=== PATIENT | male | born 1975 | race Caucasian/White ===

== ENCOUNTER 2017-05-27 15:36 | Inpatient (IN) | payer OTHER ==
[2017-05-27] MEDS ORDERED: IBUPROFEN 600 MG TABLET (FP) PO ONE ×2 (16:04→16:05)
[2017-05-27] MEDS ORDERED: ALBUTEROL SO4 2.5/IPRATROPIUM 0.5 INH SOL 3 ML VIAL.NEB. NEB ONE ×3 (16:04→21:38)
--- NOTE | 2017-05-27 16:09 | PDOC ---
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 had onset of high fevers and chills on Monday and is progressively worsened. has a moist nonproductive cough, has generalized body aches "my fingernails hurt", sore throat pain and runny nose. Used ibuprofen yesterday but feels is worsening 05/27/17 17:11 Timing/Duration: reports: getting worse, week Severity: reports: moderate Modifying Factors: improves with: activity Associated Symptoms: reports: chest pain/soreness, cough, fever/chills, nasal congestion, nasal drainage, sore throat. denies: wheezing Past History - Travel Traveled outside of the country in the last 30 days: No Close contact w/someone who was outside of country & ill: No - Past Medical History Allergies/Adverse Reactions: Allergies Allergy/AdvReac Type Severity Reaction Status Date / Time No Known Allergies Allergy Verified 05/27/17 15:44 Home Medications: Ambulatory Orders NK [No Known Home Medication] 05/27/17 COPD: No Other medical history: DENIES. - Suicide/Smoking/Psychosocial Hx Smoking Status: No Smoking History: Never smoked Number of Cigarettes Smoked Daily: 0 Review of Systems - Review of Systems Able to Perform ROS?: Yes Is the patient limited Nauruan proficient: Yes Constitutional: Yes: Symptoms Reported, See HPI, Chills, Fever, Loss of Appetite , Malaise, Weakness HEENTM: Yes: Symptoms Reported, See HPI, Ear Pain, Nose Congestion, Throat Pain , Difficulty Swallowing. No: Throat Swelling Respiratory: Yes: Symptoms reported, See HPI, Cough ABD/GI: Yes: See HPI. No: Symptoms Reported Musculoskeletal: Yes: Symptoms Reported, See HPI Integumentary: Yes: See HPI, Pallor Neurological: Yes: Symptoms reported All Other Systems: Reviewed and Negative *Physical Exam - Vital Signs Last Vital Signs Temp Pulse Resp BP Pulse Ox 103 F H 118 H 20 147/70 96 05/27/17 15:44 05/27/17 15:44 05/27/17 15:44 05/27/17 15:44 05/27/17 15:44 - Physical Exam General Appearance: Yes: Nourished, Appropriately Dressed, Apparent Distress, Mild Distress, Moderate Distress HEENT: positive: VIRGIL (glassy), Nasal Congestion, Rhinorrhea (clear). negative : Normal ENT Inspection, TMs Normal (congested ), Pharynx Normal (erythema with postnasal sinus drainage ) Neck: positive: Supple, Lymphadenopathy (R), Lymphadenopathy (L) Respiratory/Chest: positive: Normal Breath Sounds (coarse insp and diminished to right ), Wheezing. negative: Respiratory Distress, Accessory Muscle Use Cardiovascular: positive: Regular Rhythm Gastrointestinal/Abdominal: positive: Normal Bowel Sounds, Soft. negative: Tender Musculoskeletal: positive: Normal Inspection Extremity: positive: Normal Inspection, Normal Range of Motion Integumentary: positive: Normal Color, Warm, Pale Neurologic: positive: instrument specialist II-XII NML intact, Fully Oriented, Alert, Normal Mood/ Affect, Normal Response, Motor Strength 06/24 ED Treatment Course - LABORATORY CBC & Chemistry Diagram: 05/28/17 09:25 05/28/17 09:25 - RADIOLOGY Radiology Studies Ordered: Category Date Time Status CHEST PA & LAT [RAD] Stat Radiology 05/27/17 16:05 Ordered Medical Decision Making - Medical Decision Making 05/27/17 17:14 Patient medicated with ibuprofen 600 mg, and given DuoNeb with some moderate to good improvement of breath sounds, better aeration. Patient states does not feel much improved however and continues to feel short of breath and dehydrated. Repeat temperature was 102.5 from 103 and patient is mildly diaphoretic now. Chest x-ray obtained and reveals a large right middle lobe pneumonia. Discussed with Dr. Cabrera who agrees patient should be admitted for IV antibiotic therapy. Patient updated to plan and started on IV fluids, and will start levofloxacin 750 mg IV now *DC/Admit/Observation/Transfer Diagnosis at time of Disposition: Pneumonia Qualifiers: Pneumonia type: due to unspecified organism Laterality: right Lung location: lower lobe of lung Qualified Code(s): J18.1 - Lobar pneumonia, unspecified organism - Discharge Dispostion Condition at time of disposition: Stable Admit: Yes - Referrals - Patient Instructions - Post Discharge Activity
[2017-05-27] MEDS ORDERED: SODIUM CHLORIDE 0.9% 500 ML INFUS.BAG IV ONE (17:03)
[2017-05-27 17:11] LABS: BASO % 0.2 % (0-2.0); HEMATOCRIT 45.1 % (35.4-49); HEMOGLOBIN 15.9 GM/dL (11.7-16.9); LYMPH % 11.2 % (8-40); MCH 30.5 pg (25.7-33.7); MCHC 35.3 g/dl (32.0-35.9); MEAN CELL VOLUME 86.4 fl (80-96); MEAN PLT VOLUME 8.8 fl (7.5-11.1); MONO % 14.7 % (3.8-10.2); NEUT % 73.9 % (42.8-82.8); PLATELET COUNT 121 K/MM3 (134-434); RBC 5.21 M/mm3 (4.00-5.60); RDW 13.1 % (11.9-15.9); WHITE BLOOD COUNT 5.4 K/mm3 (4.0-10.0)
[2017-05-27] MEDS ORDERED: guaiFENesin/D-METHORPHAN HB 10 ML UNIT-DOSE CUPS ONE (17:28)
[2017-05-27 17:34] LABS: ALBUMIN 3.7 g/dl (3.4-5.0); ALK PHOS 65 U/L (45-117); ANION GAP 10 (8-16); BILIRUBIN,TOTAL 0.4 mg/dL (0.2-1.0); BLOOD UREA NITROGEN 19 mg/dL (7-18); CALCIUM 8.3 mg/dL (8.5-10.1); CHLORIDE 100 mmol/L (98-107); CO2 21 mmol/L (21-32); CREATININE 1.2 mg/dL (0.7-1.3); GLUCOSE,RANDOM 133 mg/dL (74-106); SGOT/AST 58 U/L (15-37); SGPT/ALT 40 U/L (12-78); SODIUM 131 mmol/L (136-145); TOT PROT 7.5 g/dl (6.4-8.2)
--- NOTE | 2017-05-27 17:50 | HP ---
CHIEF COMPLAINT: "I have a pneumonia" PCP: none HISTORY OF PRESENT ILLNESS: Patient is a 42 year old male with no significant past medical history. He presents to the Ed today with subjective high fevers and chills that started on Monday and progressively worsened throughout the week. He states he had a non productive cough, has body aches, throat pain and runny nose. 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 In the ED he was laying in the bed, in no acute distress, appears profoundly weak. RLL with diminished lung sounds. Tolerating room air. Flu swab in ED negative. He does not smoke ER course was notable for: (1) levaquin 750mg in ED (2) NA 131 (3) Platelets 121 (4) trop 0.02 (5) LA 0.8 (6) chest xray with RLL consolidation, Chest CT ordered, BNP ordered (7) trops negative x 1 (8) blood cults pending Recent Travel: n/a PAST MEDICAL HISTORY: denies PAST SURGICAL HISTORY: Social History: Smoking: denies Alcohol: denies Drugs: denies Family History: Allergies No Known Allergies Allergy (Verified 05/27/17 15:44) HOME MEDICATIONS: Home Medications Medication Instructions Recorded NK [No Known Home Medication] 05/27/17 Vital Signs - 24 hr 05/27/17 15:44 Temperature 103 F H Pulse Rate 118 H Respiratory 20 Rate Blood Pressure 147/70 O2 Sat by Pulse 96 Oximetry (%) GENERAL: Awake, alert, and fully oriented, in mild resp. acute distress. HEAD: Normal with no signs of trauma. EYES: Pupils equal, round and reactive to light, extraocular movements intact, sclera anicteric, conjunctiva clear. No lid lag. EARS, NOSE, THROAT: Ears normal, nares patent, oropharynx clear without exudates. Moist mucous membranes. NECK: Normal range of motion, supple without lymphadenopathy, JVD, or masses. LUNGS:RLL diminished to auscultation, tolerating room air, left lung clear to auscultation HEART: Regular rate and rhythm, normal S1 and S2 without murmur, rub or gallop. ABDOMEN: Soft, nontender, not distended, normoactive bowel sounds, no guarding, no rebound, no masses. No hepatomegaly or splenomegaly. MUSCULOSKELETAL: Normal range of motion at all joints. No bony deformities or tenderness. No CVA tenderness. UPPER EXTREMITIES: 2+ pulses, warm, well-perfused. No cyanosis. No clubbing. No peripheral edema. LOWER EXTREMITIES: 2+ pulses, warm, well-perfused. No calf tenderness. No peripheral edema. Laboratory Results - last 24 hr 05/27/17 05/27/17 17:01 17:01 WBC 5.4 RBC 5.21 Hgb 15.9 Hct 45.1 MCV 86.4 MCH 30.5 MCHC 35.3 RDW 13.1 Plt Count 121 L MPV 8.8 Neutrophils % 73.9 Lymphocytes % 11.2 Monocytes % 14.7 H Eosinophils % 0.0 Basophils % 0.2 Sodium 131 L Potassium 4.0 Chloride 100 Carbon Dioxide 21 Anion Gap 10 BUN 19 H Creatinine 1.2 Creat Clearance w eGFR > 60 Random Glucose 133 H Calcium 8.3 L Total Bilirubin 0.4 AST 58 H ALT 40 Alkaline Phosphatase 65 Total Protein 7.5 Albumin 3.7 ASSESSMENT/PLAN: Patient is a 42 year old male with no significant past medical history. He presents to the Ed today with subjective high fevers and chills that started on Monday and progressively worsened throughout the week. He states he had a non productive cough, has body aches, throat pain and runny nose. 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 In the ED he was laying in the bed, in no acute distress, appears profoundly weak. RLL with diminished lung sounds. Tolerating room air. Flu swab in ED negative. He does not smoke. In the ED patient was given ibuprofen 600mg and a duoneb with some improvement but patient did not feel better and therefore admitted after chest xray shows large right middle lobe pneumonia. Pulm: RLL penumonia Given Levaquin 750mg in ED Order CT scan of chest to further evaluate Trend trops 2 liters of supplemental oxygen Duonebs scheduled q6 Pulm consulted ID consulted for further antibiotic therapy Echo ordered Hospitalist Screening - Colonoscopy Questionnaire Colonoscopy Questionnaire: Colonoscopy Questionnaire
--- NOTE | 2017-05-27 18:48 | PDOC ---
*Physical Exam - Vital Signs Last Vital Signs Temp Pulse Resp BP Pulse Ox 103 F H 118 H 20 147/70 96 05/27/17 15:44 05/27/17 15:44 05/27/17 15:44 05/27/17 15:44 05/27/17 15:44 ED Treatment Course - LABORATORY CBC & Chemistry Diagram: 05/27/17 17:01 05/27/17 17:01 - ADDITIONAL ORDERS Additional order review: Laboratory Results 05/27/17 05/27/17 05/27/17 17:30 17:30 17:01 Sodium 131 L Potassium 4.0 Chloride 100 Carbon Dioxide 21 Anion Gap 10 BUN 19 H Creatinine 1.2 Creat Clearance w eGFR > 60 Random Glucose 133 H Lactic Acid 0.8 Calcium 8.3 L Total Bilirubin 0.4 AST 58 H ALT 40 Alkaline Phosphatase 65 Troponin I < 0.02 Total Protein 7.5 Albumin 3.7 05/27/17 16:10 Influenza Types A,B Antigen (SAHARA) - Final Nasopharyngeal Swab - Final 05/27/17 17:01 RBC 5.21 MCV 86.4 MCHC 35.3 RDW 13.1 MPV 8.8 Neutrophils % 73.9 Lymphocytes % 11.2 Monocytes % 14.7 H Eosinophils % 0.0 Basophils % 0.2 - Medications Given in the ED: ED Medications Discontinued Medications Generic Name Dose Route Start Last Admin Trade Name Denise PRN Reason Stop Dose Admin Albuterol/Ipratropium 1 amp 05/27/17 16:04 05/27/17 16:09 Duoneb - NEB 05/27/17 16:05 1 amp ONCE ONE Administration Levofloxacin 750 mg in 150 mls @ 100 mls/hr 05/27/17 17:00 05/27/17 17:13 Levaquin 750 Mg Premixed Ivpb - IVPB 05/27/17 18:29 100 mls/hr ONCE ONE Administration Ibuprofen 600 mg 05/27/17 16:04 05/27/17 16:09 Motrin - PO 05/27/17 16:05 600 mg ONCE ONE Administration Sodium Chloride 1,000 ml 05/27/17 17:03 05/27/17 17:08 Normal Saline - IV 05/27/17 17:04 1,000 ml ONCE ONE Administration Medical Decision Making - Medical Decision Making 05/27/17 18:47 Mr white presented to the ER with a complaint of cough, fever Was noted to be tachycardiac Labs sent CXR sent Laboratory Tests 05/27/17 05/27/17 05/27/17 17:01 17:01 17:30 WBC 5.4 Hgb 15.9 Hct 45.1 Plt Count 121 L Sodium 131 L Potassium 4.0 Chloride 100 Carbon Dioxide 21 Anion Gap 10 BUN 19 H Random Glucose 133 H Alkaline Phosphatase 65 Troponin I < 0.02 CXR: large Right Middle lobe consolidation Pt admitted to the hospitalist service Clinical impression: pneumonia, initial presentation *DC/Admit/Observation/Transfer Diagnosis at time of Disposition: Pneumonia Qualifiers: Pneumonia type: due to unspecified organism Laterality: right Lung location: lower lobe of lung Qualified Code(s): J18.1 - Lobar pneumonia, unspecified organism - Discharge Dispostion Condition at time of disposition: Stable - Referrals - Patient Instructions - Post Discharge Activity
[2017-05-27 18:49] LABS: INR 1.27 (0.82-1.09); PROTHROMBIN TIME (PATIENT) 14.4 SEC (9.98-11.88)
[2017-05-27] MEDS: ALBUTEROL SO4 2.5/IPRATROPIUM 0.5 INH SOL 3 ML VIAL.NEB. NEB SCH (21:20)
[2017-05-27] MEDS: SODIUM CHLORIDE 1,000 ML IV SCH (21:52)
[2017-05-27 22:16] LABS: URINE APPEARANCE CLEAR; URINE BILIRUBIN NEGATIVE (<2.0 mg/dL); URINE BLOOD NEGATIVE (NEGATIVE); URINE COLOR YELLOW; URINE GLUCOSE (UA) NEGATIVE (NEGATIVE); URINE KETONE TRACE (NEGATIVE); URINE LEUK ESTERASE NEGATIVE (NEGATIVE); URINE NITRITE NEGATIVE (NEGATIVE); URINE UROBILINOGEN NEGATIVE mg/dL (0.2-1.0)
[2017-05-27 22:19] LABS: URINE PROTEIN 1+ (NEGATIVE)
[2017-05-27 22:20] LABS: URINE BACTERIA RARE /hpf (NONE SEEN); URINE MUCUS RARE
[2017-05-27] MEDS: ACETAMINOPHEN 325 MG TABLET (FP) PO PRN (22:59)
[2017-05-27] MEDS: guaiFENesin 200 MG/10 ML 10 ML UNIT-DOSE CUPS PO PRN (23:06)
[2017-05-27 23:47] VITALS: BMI 31.2
[2017-05-28] MEDS: guaiFENesin 200 MG/10 ML 10 ML UNIT-DOSE CUPS PO PRN ×3 (05:18→21:38)
[2017-05-28] MEDS: SODIUM CHLORIDE 1,000 ML IV SCH ×2 (06:10→21:37)
[2017-05-28] MEDS: ACETAMINOPHEN 325 MG TABLET (FP) PO PRN ×2 (06:18→14:33)
[2017-05-28] MEDS: ALBUTEROL SO4 2.5/IPRATROPIUM 0.5 INH SOL 3 ML VIAL.NEB. NEB SCH ×4 (08:47→20:43)
[2017-05-28] MEDS ORDERED: PIPERACILLIN/TAZOB 2.25 GM/50 ML PREMIX BAG IVPB ONE (09:18)
--- NOTE | 2017-05-28 09:18 | EKG ---
Test Reason : Blood Pressure : / mmHG Vent. Rate : 078 BPM Atrial Rate : 078 BPM P-R Int : 154 ms QRS Dur : 088 ms QT Int : 382 ms P-R-T Axes : 018 029 -07 degrees QTc Int : 435 ms NORMAL SINUS RHYTHM NORMAL ECG NO PREVIOUS ECGS AVAILABLE Confirmed by ALEXIA FLORES, OLIMPIA ([id number]) on 05/28/2017 9:18:04 AM Referred By: Confirmed By:OLIMPIA HALE MD
[2017-05-28 09:45] LABS: BASO % 0.3 % (0-2.0); HEMATOCRIT 41.3 % (35.4-49); HEMOGLOBIN 14.3 GM/dL (11.7-16.9); LYMPH % 16.5 % (8-40); MCH 30.2 pg (25.7-33.7); MCHC 34.5 g/dl (32.0-35.9); MEAN CELL VOLUME 87.4 fl (80-96); MEAN PLT VOLUME 8.9 fl (7.5-11.1); MONO % 13.6 % (3.8-10.2); NEUT % 69.6 % (42.8-82.8); PLATELET COUNT 100 K/MM3 (134-434); RBC 4.72 M/mm3 (4.00-5.60); RDW 13.3 % (11.9-15.9)
[2017-05-28] MEDS: RANITIDINE HCL 150 MG TABLET (FP) PO SCH ×2 (09:49→21:35)
[2017-05-28] MEDS: HEPARIN NA (PORCINE) 5,000 UNITS/ML 1ML VIAL SQ SCH ×2 (09:50→21:34)
[2017-05-28] MEDS ORDERED: PIPERACILLIN/TAZOB 2.25 GM 2.25 GM in DEXTROSE 5%-WATER - 50 ML IVPB ONE (10:00)
[2017-05-28] MEDS ORDERED: PIPERACILLIN/TAZOBACTAM 2.25 GM VIAL IVPB ONE (10:03)
[2017-05-28 10:40] LABS: ALK PHOS 55 U/L (45-117); ANION GAP 7 (8-16); BILIRUBIN,TOTAL 0.4 mg/dL (0.2-1.0); BLOOD UREA NITROGEN 16 mg/dL (7-18); CALCIUM 7.4 mg/dL (8.5-10.1); CHLORIDE 101 mmol/L (98-107); CO2 25 mmol/L (21-32); GLUCOSE,RANDOM 107 mg/dL (74-106); MAGNESIUM 1.9 mg/dL (1.8-2.4); POTASSIUM 3.9 mmol/L (3.5-5.1); SGOT/AST 53 U/L (15-37); SGPT/ALT 36 U/L (12-78); SODIUM 133 mmol/L (136-145); TOT PROT 6.3 g/dl (6.4-8.2)
--- NOTE | 2017-05-28 13:57 | CON.ID ---
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 according to the patient he started feeling sick since monday and he mentions that he asked his coworkers to cover him which they did not. He continued to worsen throught the week and came to the hospital He states he had a non productive cough, has body aches, throat pain and runny nose. 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 currently patient is very sob and it is hard for him to complete one sentence also he has been coughing a lot currently on nasal cannula - History Source History Provided By: Patient Limitations to Obtaining History: No Limitations - Alcohol/Substance Use Hx Alcohol Use: Yes - Smoking History Smoking history: Never smoked Aproximately how many cigarettes per day: 0 Home Medications - Allergies Allergies/Adverse Reactions: Allergies Allergy/AdvReac Type Severity Reaction Status Date / Time No Known Allergies Allergy Verified 05/27/17 15:44 - Home Medications Home Medications: Ambulatory Orders NK [No Known Home Medication] 05/27/17 Review of Systems - Review of Systems Constitutional: reports: Chills, Fever Eyes: reports: No Symptoms HENT: reports: No Symptoms Neck: reports: No Symptoms Cardiovascular: reports: No Symptoms Respiratory: reports: Cough, SOB, SOB on Exertion Gastrointestinal: reports: No Symptoms Genitourinary: reports: No Symptoms Musculoskeletal: reports: No Symptoms Integumentary: reports: No Symptoms Neurological: reports: No Symptoms Endocrine: reports: No Symptoms Hematology/Lymphatic: reports: No Symptoms Psychiatric: reports: No Symptoms Physical Exam Vital Signs: Vital Signs Temperature 101.7 F H 05/28/17 09:57 Pulse Rate 84 05/28/17 08:32 Respiratory Rate 20 05/28/17 08:32 Blood Pressure 141/82 05/28/17 08:32 O2 Sat by Pulse Oximetry (%) 97 05/28/17 08:57 Constitutional: Yes: Well Nourished, Calm, Moderate Distress Eyes: Yes: Conjunctiva Clear HENT: Yes: Atraumatic Neck: Yes: Supple, Trachea Midline Cardiovascular: Yes: Regular Rate and Rhythm Respiratory: Yes: On Nasal O2, Poor Air Entry (rt lower base), Rhonchi Gastrointestinal: Yes: Normal Bowel Sounds, Soft Musculoskeletal: Yes: WNL Extremities: Yes: WNL Neurological: Yes: Alert, Oriented Psychiatric: Yes: Alert, Oriented Labs: CBC, BMP 05/28/17 09:25 05/28/17 09:25 Imaging - Results Chest X-ray: Report Reviewed, Image Reviewed Cat Scan: Image Reviewed (awaiting for official result) Assessment/Plan 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
--- NOTE | 2017-05-28 14:17 | PN ---
Progress Note (short form) - Note Progress Note: PULMONARY CONSULTATION DICTATED 05/28/17 IMP RML,RUL PNEUMONIA HYPONATREMIA THROMBOCYTOPENIA PLAN IV ABX INHALED BRONCHODILATORS SHORT COURSE OF STEROIDS O2 CULTURES URINARY ANTIGENS F/U CHEST X-RAY TO DOCUMENT RESOLUTION IVF MONITOR LYTES/NA MONITOR PLT CT DR YOUNGER Problem List - Problems (1) Hyponatremia Code(s): E87.1 - HYPO-OSMOLALITY AND HYPONATREMIA (2) Pneumonia Code(s): J18.9 - PNEUMONIA, UNSPECIFIED ORGANISM Qualifiers: Pneumonia type: due to unspecified organism Laterality: right Lung location: lower lobe of lung Qualified Code(s): J18.1 - Lobar pneumonia, unspecified organism (3) Thrombocytopenia Code(s): D69.6 - THROMBOCYTOPENIA, UNSPECIFIED
[2017-05-28] MEDS: methylPREDNISolone NA SUCC 40 MG/1 ML VIAL IVPUSH SCH ×2 (14:33→21:34)
--- NOTE | 2017-05-28 14:44 | CONS ---
DATE OF CONSULTATION: 05/28/2017 REFERRING PROVIDER: SHEILA Knutson The patient is a 42-year-old white male, who any significant past medical history, who is a nonsmoker, admitted to [facility] with complaint of 5-day history of generalized fevers, chills, shortness of breath, and cough. Patient states he started developing symptoms late Monday, early Monday. At the time, he had some chills and just very weak. He said he had progressive weakness, had some shortness of breath and cough which was nonproductive. He also stated he had some throat pain and a runny nose. 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 The next day again he developed chills and fevers, for which he did not take his temperature, as well as some shortness of breath and cough. His symptoms progressively worsened, at which time he presented to the emergency room. In the ER, he was noted to be ill appearing. He had a chest x-ray performed, which revealed a right middle lobe consolidation. Subsequently a CAT scan revealed a right middle lobe and an anterior right upper lobe consolidation. He was admitted to the floor. He was started on broad-spectrum antibiotics. He was also noted to be hypoxic and his O2 saturation is 92% on 3 L. As stated before, he is a nonsmoker. There is no history of recent travel but patient does state that his brother was recently in from [place] and had similar type symptoms. He has no pets at home. There is no history of pneumonia. There is no history of COPD or asthma in the past. Past medical history, again, is unremarkable. There is no previous surgery. 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 No recent travel. Nonsmoker. No EtOH. REVIEW OF SYSTEMS: Positive cough, positive shortness of breath, positive wheezing. No chest pain, no palpitations. Positive headache, positive nausea. No vomiting. No abdominal pain. No lower extremity edema. Current medications include Zosyn, Levaquin, heparin subcutaneous, DuoNeb, Robitussin, Zantac, and Tylenol. PHYSICAL EXAMINATION: General: The patient is a well-developed, well-nourished male, awake, alert, ill appearing but in no acute respiratory distress. Vital Signs: T-max is 103, currently 101.7. Respiratory rate is 20. O2 saturation is 97% on 2 L. HEENT: Normocephalic, atraumatic. Neck: Supple. Heart: Regular, S1, S2. Chest: Scattered bilateral rhonchi, more pronounced on the right. Abdomen: Soft. Bowel sounds are positive. Extremities: No cyanosis, edema. LABORATORIES: Sodium is 133, BUN 16, creatinine 1.0. WBC is 4.0, hemoglobin 14.3, hematocrit 41.3, with a platelet count of 100,000. Chest CT as noted earlier. IMPRESSION: 1. Hypoxemia secondary to pneumonia. 2. Extensive right middle lobe and partial right upper lobe pneumonia, community acquired. 3. Thrombocytopenia. Monitor platelet count. 4. Hyponatremia, likely secondary to dehydration as well as possible SIADH from pulmonary process. PLAN: Inhaled bronchodilators, broad-spectrum antibiotics, pinto cultures, serum for cold agglutinins, Legionella urinary antigen, pneumococcal urinary antigen. Follow up chest x-rays to document resolution of infiltrates. Suggest to monitor serum sodium, monitor platelet count. Also a short course of IV steroids. SAPPHIRE YOUNGER M.D. [id number] MTDD
[2017-05-28] MEDS ORDERED: PIPERACILLIN/TAZOBACTAM 3.375 GM VIAL IVPB ONE (17:00)
[2017-05-28] MEDS ORDERED: DEXTROSE 5%-WATER - 50 ML IVPB ONE (17:01)
[2017-05-28] MEDS: PIPERACILLIN/TAZOB 3.375 GM 3.375 GM in DEXTROSE 5%-WATER - 50 ML IVPB SCH (17:13)
[2017-05-28] MEDS ORDERED: PIPERACILLIN/TAZOB 3.375 GM 50 ML IVPB SCH (18:00)
--- NOTE | 2017-05-28 18:24 | PN ---
Physical Exam: SUBJECTIVE: Patient seen and examined at the bedside. Feels slightly better, no events overnight. OBJECTIVE: Vital Signs Period Temp Pulse Resp BP Sys/Lombardi Pulse Ox Last 24 Hr 99.6 F-103.0 F 78-102 20-22 125-146/50-84 96-97 GENERAL: Awake, alert, and fully oriented, in mild resp. acute distress. HEAD: Normal with no signs of trauma. EYES: Pupils equal, round and reactive to light, extraocular movements intact, sclera anicteric, conjunctiva clear. No lid lag. EARS, NOSE, THROAT: Ears normal, nares patent, oropharynx clear without exudates. Moist mucous membranes. NECK: Normal range of motion, supple without lymphadenopathy, JVD, or masses. LUNGS:RLL diminished to auscultation, tolerating room air, left lung clear to auscultation HEART: Regular rate and rhythm, normal S1 and S2 without murmur, rub or gallop. ABDOMEN: Soft, nontender, not distended, normoactive bowel sounds, no guarding, no rebound, no masses. No hepatomegaly or splenomegaly. MUSCULOSKELETAL: Normal range of motion at all joints. No bony deformities or tenderness. No CVA tenderness. UPPER EXTREMITIES: 2+ pulses, warm, well-perfused. No cyanosis. No clubbing. No peripheral edema. LOWER EXTREMITIES: 2+ pulses, warm, well-perfused. No calf tenderness. No peripheral edema. Laboratory Results - last 24 hr 05/27/17 05/27/17 05/27/17 17:30 17:30 17:30 WBC RBC Hgb Hct MCV MCH MCHC RDW Plt Count MPV Neutrophils % Lymphocytes % Monocytes % Eosinophils % Basophils % PT with INR 14.40 H INR 1.27 H Sodium Potassium Chloride Carbon Dioxide Anion Gap BUN Creatinine Creat Clearance w eGFR Random Glucose Lactic Acid 0.8 Calcium Magnesium Total Bilirubin AST ALT Alkaline Phosphatase Troponin I < 0.02 B-Natriuretic Peptide Total Protein Albumin Urine Color Urine Appearance Urine pH Ur Specific [place] Urine Protein Urine Glucose (UA) Urine Ketones Urine Blood Urine Nitrite Urine Bilirubin Urine Urobilinogen Ur Leukocyte Esterase Urine WBC (Auto) Urine RBC (Auto) Urine Bacteria Urine Mucus 05/27/17 05/27/17 05/27/17 20:11 20:11 21:42 WBC RBC Hgb Hct MCV MCH MCHC RDW Plt Count MPV Neutrophils % Lymphocytes % Monocytes % Eosinophils % Basophils % PT with INR INR Sodium Potassium Chloride Carbon Dioxide Anion Gap BUN Creatinine Creat Clearance w eGFR Random Glucose Lactic Acid 0.9 Calcium Magnesium Total Bilirubin AST ALT Alkaline Phosphatase Troponin I B-Natriuretic Peptide 103.53 Total Protein Albumin Urine Color Yellow Urine Appearance Clear Urine pH 6.0 Ur Specific [place] 1.018 Urine Protein 1+ H Urine Glucose (UA) Negative Urine Ketones Trace H Urine Blood Negative Urine Nitrite Negative Urine Bilirubin Negative Urine Urobilinogen Negative Ur Leukocyte Esterase Negative Urine WBC (Auto) 3 Urine RBC (Auto) 3 Urine Bacteria Rare Urine Mucus Rare 05/27/17 05/28/17 05/28/17 23:15 09:25 09:25 WBC 4.0 RBC 4.72 Hgb 14.3 D Hct 41.3 MCV 87.4 MCH 30.2 MCHC 34.5 RDW 13.3 Plt Count 100 L MPV 8.9 Neutrophils % 69.6 Lymphocytes % 16.5 D Monocytes % 13.6 H Eosinophils % 0.0 Basophils % 0.3 PT with INR INR Sodium 133 L Potassium 3.9 Chloride 101 Carbon Dioxide 25 Anion Gap 7 L BUN 16 Creatinine 1.0 Creat Clearance w eGFR > 60 Random Glucose 107 H Lactic Acid Calcium 7.4 L Magnesium 1.9 Total Bilirubin 0.4 AST 53 H ALT 36 Alkaline Phosphatase 55 Troponin I < 0.02 < 0.02 B-Natriuretic Peptide Total Protein 6.3 L Albumin 3.0 L Urine Color Urine Appearance Urine pH Ur Specific [place] Urine Protein Urine Glucose (UA) Urine Ketones Urine Blood Urine Nitrite Urine Bilirubin Urine Urobilinogen Ur Leukocyte Esterase Urine WBC (Auto) Urine RBC (Auto) Urine Bacteria Urine Mucus 05/28/17 09:25 WBC RBC Hgb Hct MCV MCH MCHC RDW Plt Count MPV Neutrophils % Lymphocytes % Monocytes % Eosinophils % Basophils % PT with INR INR Sodium Potassium Chloride Carbon Dioxide Anion Gap BUN Creatinine Creat Clearance w eGFR Random Glucose Lactic Acid Calcium Magnesium Total Bilirubin AST ALT Alkaline Phosphatase Troponin I Cancelled B-Natriuretic Peptide Total Protein Albumin Urine Color Urine Appearance Urine pH Ur Specific [place] Urine Protein Urine Glucose (UA) Urine Ketones Urine Blood Urine Nitrite Urine Bilirubin Urine Urobilinogen Ur Leukocyte Esterase Urine WBC (Auto) Urine RBC (Auto) Urine Bacteria Urine Mucus Active Medications Generic Name Dose Route Start Last Admin Trade Name Freq PRN Reason Stop Dose Admin Acetaminophen 650 mg 05/27/17 19:05 05/28/17 14:33 Tylenol - PO 650 mg Q6H PRN Administration FEVER Albuterol/Ipratropium 1 amp 05/27/17 20:00 05/28/17 16:53 Duoneb - NEB 1 amp RQID JHON Administration Guaifenesin 10 ml 05/27/17 21:56 05/28/17 11:12 Robitussin - PO 10 ml Q6H PRN Administration COUGH Heparin Sodium (Porcine) 5,000 unit 05/28/17 10:00 05/28/17 09:50 Heparin - SQ 5,000 unit BID JHON Administration Sodium Chloride 1,000 mls @ 100 mls/hr 05/27/17 19:15 05/28/17 06:10 Normal Saline - IV 100 mls/hr ASDIR JHON Administration Levofloxacin 750 mg in 150 mls @ 150 mls/hr 05/28/17 14:30 05/28/17 14:35 Levaquin 750 Mg Premixed Ivpb - IVPB 150 mls/hr DAILY JHON Administration Piperacillin Sod/Tazobactam 50 mls @ 100 mls/hr 05/28/17 18:00 05/28/17 17:13 Sod 3.375 gm/ Dextrose IVPB 100 mls/hr Q8H-IV JHON Administration Protocol Methylprednisolone Sodium Succinate 40 mg 05/28/17 15:00 05/28/17 14:33 Solu-Medrol - IVPUSH 40 mg Q6H-IV JHON Administration Ranitidine HCl 150 mg 05/28/17 10:00 05/28/17 09:49 Zantac - PO 150 mg BID JHON Administration ASSESSMENT/PLAN: Patient is a 42 year old male with no significant past medical history. He presents to the Ed today with subjective high fevers and chills that started on Monday and progressively worsened throughout the week. He states he had a non productive cough, has body aches, throat pain and runny nose. 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 In the ED he was laying in the bed, in no acute distress, appears profoundly weak. RLL with diminished lung sounds. Tolerating room air. Flu swab in ED negative. He does not smoke. In the ED patient was given ibuprofen 600mg and a duoneb with some improvement but patient did not feel better and therefore admitted after chest xray shows large right middle lobe pneumonia. Imaging: CT scan/chest: pneumonia with complete opacity of the right mid lobe and patchy right upper lobe infiltrates. 2. small layering right pleural effusion with subsegmental compressive atelectasis in the right lung base. 3. clusters of subcentimeter mediastinal lymph nodes. 4. hepatic steatosis. 5. partially non obstsructing left nephrolithiasis Pulm: RLL penumonia Given Levaquin 750mg in ED Now on Zosyn and Levaquin 750mg as per ID Trops negative 2 liters of supplemental oxygen Duonebs scheduled q6 Solumedrol 40mg q6 as per pulmonary Pulm consulted and following BNP not elevated F.E.N. Fluids: PO adequate, IVF for hyponatremia Electrolytes: monitor Nutrition: regular diet Prohy: DVT: ambulatory patient, SCDs GI: Zantac Disposition: full code Visit type - Emergency Visit Emergency Visit: Yes ED Registration Date: 05/27/17 Care time: The patient presented to the Emergency Department on the above date and was hospitalized for further evaluation of their emergent condition. - New Patient This patient is new to me today: No - Critical Care Critical Care patient: No - Discharge Referral Referred to [facility] Med P.C.: No
[2017-05-29] MEDS ORDERED: DEXTROSE 5%-WATER - 50 ML IVPB ONE ×2 (02:45→08:59)
[2017-05-29] MEDS ORDERED: PIPERACILLIN/TAZOBACTAM 3.375 GM VIAL IVPB ONE ×3 (02:45→17:07)
[2017-05-29] MEDS: PIPERACILLIN/TAZOB 3.375 GM 3.375 GM in DEXTROSE 5%-WATER - 50 ML IVPB SCH ×3 (02:47→17:28)
[2017-05-29] MEDS: methylPREDNISolone NA SUCC 40 MG/1 ML VIAL IVPUSH SCH ×4 (02:48→21:47)
[2017-05-29] MEDS: guaiFENesin 200 MG/10 ML 10 ML UNIT-DOSE CUPS PO PRN ×3 (05:05→21:48)
[2017-05-29] MEDS: ALBUTEROL SO4 2.5/IPRATROPIUM 0.5 INH SOL 3 ML VIAL.NEB. NEB SCH ×4 (07:30→20:54)
[2017-05-29] MEDS: HEPARIN NA (PORCINE) 5,000 UNITS/ML 1ML VIAL SQ SCH ×2 (09:21→21:47)
[2017-05-29] MEDS: RANITIDINE HCL 150 MG TABLET (FP) PO SCH ×2 (09:21→21:47)
--- NOTE | 2017-05-29 11:03 | PN ---
Physical Exam: SUBJECTIVE: Patient seen and examined at the bedside. Feels better, wants to go home. OBJECTIVE: Oxygen sats on room air 91%, will need pre and post prior to discharge Vital Signs Period Temp Pulse Resp BP Sys/Lombardi Pulse Ox Last 24 Hr 97.4 F-103.0 F 64-101 18-22 108-125/62-87 95 GENERAL: Awake, alert, and fully oriented, in mild resp. acute distress. HEAD: Normal with no signs of trauma. EYES: Pupils equal, round and reactive to light, extraocular movements intact, sclera anicteric, conjunctiva clear. No lid lag. EARS, NOSE, THROAT: Ears normal, nares patent, oropharynx clear without exudates. Moist mucous membranes. NECK: Normal range of motion, supple without lymphadenopathy, JVD, or masses. LUNGS:RLL diminished to auscultation, tolerating room air, left lung clear to auscultation HEART: Regular rate and rhythm, normal S1 and S2 without murmur, rub or gallop. ABDOMEN: Soft, nontender, not distended, normoactive bowel sounds, no guarding, no rebound, no masses. No hepatomegaly or splenomegaly. MUSCULOSKELETAL: Normal range of motion at all joints. No bony deformities or tenderness. No CVA tenderness. UPPER EXTREMITIES: 2+ pulses, warm, well-perfused. No cyanosis. No clubbing. No peripheral edema. LOWER EXTREMITIES: 2+ pulses, warm, well-perfused. No calf tenderness. No peripheral edema. Active Medications Generic Name Dose Route Start Last Admin Trade Name Freq PRN Reason Stop Dose Admin Acetaminophen 650 mg 05/27/17 19:05 05/28/17 14:33 Tylenol - PO 650 mg Q6H PRN Administration FEVER Albuterol/Ipratropium 1 amp 05/27/17 20:00 05/29/17 07:30 Duoneb - NEB 1 amp RQID JHON Administration Guaifenesin 10 ml 05/27/17 21:56 05/29/17 05:05 Robitussin - PO 10 ml Q6H PRN Administration COUGH Heparin Sodium (Porcine) 5,000 unit 05/28/17 10:00 05/29/17 09:21 Heparin - SQ 5,000 unit BID JHON Administration Sodium Chloride 1,000 mls @ 100 mls/hr 05/27/17 19:15 05/28/17 21:37 Normal Saline - IV 100 mls/hr ASDIR JHON Administration Levofloxacin 750 mg in 150 mls @ 150 mls/hr 05/28/17 14:30 05/29/17 09:21 Levaquin 750 Mg Premixed Ivpb - IVPB 150 mls/hr DAILY JHON Administration Piperacillin Sod/Tazobactam 50 mls @ 100 mls/hr 05/28/17 18:00 05/29/17 09:21 Sod 3.375 gm/ Dextrose IVPB 100 mls/hr Q8H-IV JHON Administration Protocol Methylprednisolone Sodium Succinate 40 mg 05/28/17 15:00 05/29/17 09:21 Solu-Medrol - IVPUSH 40 mg Q6H-IV JHON Administration Ranitidine HCl 150 mg 05/28/17 10:00 05/29/17 09:21 Zantac - PO 150 mg BID JHON Administration ASSESSMENT/PLAN: Patient is a 42 year old male with no significant past medical history. He presents to the Ed today with subjective high fevers and chills that started on Monday and progressively worsened throughout the week. He states he had a non productive cough, has body aches, throat pain and runny nose. 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 In the ED he was laying in the bed, in no acute distress, appears profoundly weak. RLL with diminished lung sounds. Tolerating room air. Flu swab in ED negative. He does not smoke. In the ED patient was given ibuprofen 600mg and a duoneb with some improvement but patient did not feel better and therefore admitted after chest xray shows large right middle lobe pneumonia. Imaging: CT scan/chest: pneumonia with complete opacity of the right mid lobe and patchy right upper lobe infiltrates. 2. small layering right pleural effusion with subsegmental compressive atelectasis in the right lung base. 3. clusters of subcentimeter mediastinal lymph nodes. 4. hepatic steatosis. 5. partially non obstsructing left nephrolithiasis Pulm: RLL penumonia Given Levaquin 750mg in ED Now on Zosyn and Levaquin 750mg as per ID Trops negative 2 liters of supplemental oxygen prn Duonebs scheduled q6 Solumedrol 40mg q6, taper as per pulmonary Pulm consulted and following BNP not elevated F.E.N. Fluids: PO adequate, IVF for hyponatremia Electrolytes: monitor Nutrition: regular diet Prohy: DVT: ambulatory patient, SCDs GI: Zantac Disposition: full code
--- NOTE | 2017-05-29 12:52 | PN ---
Progress Note, Physician History of Present Illness: pulmonary alert,feeling better,less cough,less congestion - Current Medication List Current Medications: Active Medications Acetaminophen (Tylenol -) 650 mg PO Q6H PRN PRN Reason: FEVER Last Admin: 05/28/17 14:33 Dose: 650 mg Albuterol/Ipratropium (Duoneb -) 1 amp NEB RQID [facility] Last Admin: 05/29/17 11:15 Dose: 1 amp Guaifenesin (Robitussin -) 10 ml PO Q6H PRN PRN Reason: COUGH Last Admin: 05/29/17 11:45 Dose: 10 ml Heparin Sodium (Porcine) (Heparin -) 5,000 unit SQ BID [facility] Last Admin: 05/29/17 09:21 Dose: 5,000 unit Sodium Chloride (Normal Saline -) 1,000 mls @ 100 mls/hr IV ASDIR [facility] Last Admin: 05/28/17 21:37 Dose: 100 mls/hr Levofloxacin (Levaquin 750 Mg Premixed Ivpb -) 750 mg in 150 mls @ 150 mls/hr IVPB DAILY [facility] Last Admin: 05/29/17 09:21 Dose: 150 mls/hr Piperacillin Sod/Tazobactam (Sod 3.375 gm/ Dextrose) 50 mls @ 100 mls/hr IVPB Q8H-IV [facility] PRN Reason: Protocol Last Admin: 05/29/17 09:21 Dose: 100 mls/hr Methylprednisolone Sodium Succinate (Solu-Medrol -) 40 mg IVPUSH Q6H-IV [facility] Last Admin: 05/29/17 09:21 Dose: 40 mg Ranitidine HCl (Zantac -) 150 mg PO BID [facility] Last Admin: 05/29/17 09:21 Dose: 150 mg - Objective Vital Signs: Vital Signs Temperature 97.6 F 05/29/17 06:10 Pulse Rate 64 05/29/17 06:10 Respiratory Rate 20 05/29/17 06:10 Blood Pressure 116/87 05/29/17 06:10 O2 Sat by Pulse Oximetry (%) 95 05/28/17 21:00 Constitutional: Yes: Well Nourished, Calm Eyes: Yes: WNL HENT: Yes: WNL Neck: Yes: WNL Cardiovascular: Yes: Regular Rate and Rhythm, S1, S2 Respiratory: Yes: Rhonchi (few scattered rhonchi) Gastrointestinal: Yes: Normal Bowel Sounds, Soft Extremities: Yes: WNL Edema: No Labs: CBC, BMP 05/28/17 09:25 Problem List - Problems (1) Hyponatremia Code(s): E87.1 - HYPO-OSMOLALITY AND HYPONATREMIA (2) Pneumonia Code(s): J18.9 - PNEUMONIA, UNSPECIFIED ORGANISM Qualifiers: Pneumonia type: due to unspecified organism Laterality: right Lung location: lower lobe of lung Qualified Code(s): J18.1 - Lobar pneumonia, unspecified organism (3) Thrombocytopenia Code(s): D69.6 - THROMBOCYTOPENIA, UNSPECIFIED Assessment/Plan MP RML,RUL PNEUMONIA HYPONATREMIA THROMBOCYTOPENIA PLAN IV ABX INHALED BRONCHODILATORS STEROIDS O2 F/U CHEST X-RAY TO DOCUMENT RESOLUTION IVF MONITOR LYTES/NA MONITOR PLT CT DR YOUNGER Problem List - Problems (1) Hyponatremia Code(s): E87.1 - HYPO-OSMOLALITY AND HYPONATREMIA (2) Pneumonia Code(s): J18.9 - PNEUMONIA, UNSPECIFIED ORGANISM Qualifiers: Pneumonia type: due to unspecified organism Laterality: right Lung location: lower lobe of lung Qualified Code(s): J18.1 - Lobar pneumonia, unspecified organism (3) Thrombocytopenia Code(s): D69.6 - THROMBOCYTOPENIA, UNSPECIFIED
[2017-05-29] MEDS: SODIUM CHLORIDE 1,000 ML IV SCH (15:30)
--- NOTE | 2017-05-29 15:35 | PN ---
Progress Note, Physician History of Present Illness: patient still sob but much better says he is breathing well still needing oxygen - Current Medication List Current Medications: Active Medications Acetaminophen (Tylenol -) 650 mg PO Q6H PRN PRN Reason: FEVER Last Admin: 05/28/17 14:33 Dose: 650 mg Albuterol/Ipratropium (Duoneb -) 1 amp NEB RQID [facility] Last Admin: 05/29/17 11:15 Dose: 1 amp Guaifenesin (Robitussin -) 10 ml PO Q6H PRN PRN Reason: COUGH Last Admin: 05/29/17 11:45 Dose: 10 ml Heparin Sodium (Porcine) (Heparin -) 5,000 unit SQ BID [facility] Last Admin: 05/29/17 09:21 Dose: 5,000 unit Sodium Chloride (Normal Saline -) 1,000 mls @ 100 mls/hr IV ASDIR [facility] Last Admin: 05/28/17 21:37 Dose: 100 mls/hr Levofloxacin (Levaquin 750 Mg Premixed Ivpb -) 750 mg in 150 mls @ 150 mls/hr IVPB DAILY [facility] Last Admin: 05/29/17 09:21 Dose: 150 mls/hr Piperacillin Sod/Tazobactam (Sod 3.375 gm/ Dextrose) 50 mls @ 100 mls/hr IVPB Q8H-IV JHON PRN Reason: Protocol Last Admin: 05/29/17 09:21 Dose: 100 mls/hr Methylprednisolone Sodium Succinate (Solu-Medrol -) 40 mg IVPUSH Q6H-IV [facility] Last Admin: 05/29/17 09:21 Dose: 40 mg Ranitidine HCl (Zantac -) 150 mg PO BID [facility] Last Admin: 05/29/17 09:21 Dose: 150 mg - Objective Vital Signs: Vital Signs Temperature 97.6 F 05/29/17 09:00 Pulse Rate 85 05/29/17 09:00 Respiratory Rate 19 05/29/17 09:00 Blood Pressure 134/77 05/29/17 09:00 O2 Sat by Pulse Oximetry (%) 95 05/29/17 09:00 Constitutional: Yes: No Distress, Calm Neck: Yes: Supple, Trachea Midline Cardiovascular: Yes: Regular Rate and Rhythm Respiratory: Yes: On Nasal O2, Poor Air Entry, Rhonchi Gastrointestinal: Yes: Normal Bowel Sounds, Soft Musculoskeletal: Yes: WNL Extremities: Yes: WNL Neurological: Yes: Alert, Oriented Psychiatric: Yes: Alert, Oriented Labs: CBC, BMP 05/28/17 09:25 05/28/17 09:25 INR, PTT INR 1.27 (0.82-1.09) H 05/27/17 17:30 Assessment/Plan Problem List - Problems (1) Hyponatremia Code(s): E87.1 - HYPO-OSMOLALITY AND HYPONATREMIA (2) Pneumonia Code(s): J18.9 - PNEUMONIA, UNSPECIFIED ORGANISM Qualifiers: Pneumonia type: due to unspecified organism Laterality: right Lung location: lower lobe of lung Qualified Code(s): J18.1 - Lobar pneumonia, unspecified organism (3) Thrombocytopenia Code(s): D69.6 - THROMBOCYTOPENIA, UNSPECIFIED plan continue abx incentive inder as per pul await for all results
[2017-05-29] MEDS ORDERED: BENZOCAINE/MENTH/CETYLPYRD CL 1 EACH LOZENGE MM PRN (20:04)
[2017-05-30] MEDS ORDERED: PIPERACILLIN/TAZOBACTAM 3.375 GM VIAL IVPB ONE ×2 (02:35→09:53)
[2017-05-30] MEDS ORDERED: DEXTROSE 5%-WATER - 50 ML IVPB ONE ×2 (02:35→09:53)
[2017-05-30] MEDS: PIPERACILLIN/TAZOB 3.375 GM 3.375 GM in DEXTROSE 5%-WATER - 50 ML IVPB SCH ×3 (02:37→17:31)
[2017-05-30] MEDS: methylPREDNISolone NA SUCC 40 MG/1 ML VIAL IVPUSH SCH ×3 (02:37→17:30)
[2017-05-30] MEDS: SODIUM CHLORIDE 1,000 ML IV SCH (06:02)
[2017-05-30] MEDS: guaiFENesin 200 MG/10 ML 10 ML UNIT-DOSE CUPS PO PRN ×2 (06:02→18:20)
[2017-05-30] MEDS: ALBUTEROL SO4 2.5/IPRATROPIUM 0.5 INH SOL 3 ML VIAL.NEB. NEB SCH ×4 (09:04→21:10)
[2017-05-30] MEDS: HEPARIN NA (PORCINE) 5,000 UNITS/ML 1ML VIAL SQ SCH (10:13)
[2017-05-30] MEDS: RANITIDINE HCL 150 MG TABLET (FP) PO SCH (10:14)
--- NOTE | 2017-05-30 11:15 | PN ---
Physical Exam: SUBJECTIVE: Patient seen and examined in the solarium. Feels better, walking around pod, in no acute distress. Wants to go home. Denies shortness of breath Pre and post ordered Does not have a primary care physician, needs one assigned OBJECTIVE: Right lung with improved movement of air Will assign PCP on discharge: Dr. Freedom Patel as patient is requesting new PCP close to hospital Vital Signs Period Temp Pulse Resp BP Sys/Lombardi Pulse Ox Last 24 Hr 97.8 F-98.2 F 64-92 20-21 105-132/60-84 96 GENERAL: The patient is awake, alert, and fully oriented, in no acute distress. HEAD: Normal with no signs of trauma. EYES: PERRL, extraocular movements intact, sclera anicteric, conjunctiva clear. No ptosis. ENT: Ears normal, nares patent, oropharynx clear without exudates, moist mucous membranes. NECK: Trachea midline, full range of motion, supple. LUNGS: Right lung clear upper lobe, mid and lower lobe with improvement of air movement, left lung clear. tolerating room air, ambulating without any breathing difficulty. HEART: Regular rate and rhythm ABDOMEN: Soft, nontender, nondistended, normoactive bowel sounds, no guarding, no rebound, no hepatosplenomegaly, no masses. EXTREMITIES: no edema. NEUROLOGICAL: Normal speech, gait steady PSYCH: Normal mood, normal affect. SKIN: Warm, dry, normal turgor, no rashes or lesions noted Active Medications Generic Name Dose Route Start Last Admin Trade Name Freq PRN Reason Stop Dose Admin Acetaminophen 650 mg 05/27/17 19:05 05/28/17 14:33 Tylenol - PO 650 mg Q6H PRN Administration FEVER Albuterol/Ipratropium 1 amp 05/27/17 20:00 05/30/17 09:04 Duoneb - NEB 1 amp RQID JHON Administration Benzocaine/Menthol 1 each 05/29/17 20:04 05/29/17 21:48 Cepacol Lozenge - MM 1 each PRN PRN Administration SORE THROAT Guaifenesin 10 ml 05/27/17 21:56 05/30/17 06:02 Robitussin - PO 10 ml Q6H PRN Administration COUGH Heparin Sodium (Porcine) 5,000 unit 05/28/17 10:00 05/30/17 10:13 Heparin - SQ 5,000 unit BID JHON Administration Sodium Chloride 1,000 mls @ 100 mls/hr 05/27/17 19:15 05/30/17 06:02 Normal Saline - IV 100 mls/hr ASDIR JHON Administration Levofloxacin 750 mg in 150 mls @ 150 mls/hr 05/28/17 14:30 05/30/17 10:13 Levaquin 750 Mg Premixed Ivpb - IVPB 150 mls/hr DAILY JHON Administration Piperacillin Sod/Tazobactam 50 mls @ 100 mls/hr 05/28/17 18:00 05/30/17 10:14 Sod 3.375 gm/ Dextrose IVPB 100 mls/hr Q8H-IV JHON Administration Protocol Methylprednisolone Sodium Succinate 40 mg 05/28/17 15:00 05/30/17 10:13 Solu-Medrol - IVPUSH 40 mg Q6H-IV JHON Administration Ranitidine HCl 150 mg 05/28/17 10:00 05/30/17 10:14 Zantac - PO 150 mg BID JHON Administration ASSESSMENT/PLAN: Patient is a 42 year old male with no significant past medical history. He presents to the ED today with subjective high fevers and chills that started on Monday and progressively worsened throughout the week. He states he had a non productive cough, has body aches, throat pain and runny nose. 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 Imaging: CT scan/chest: pneumonia with complete opacity of the right mid lobe and patchy right upper lobe infiltrates. 2. small layering right pleural effusion with subsegmental compressive atelectasis in the right lung base. 3. clusters of subcentimeter mediastinal lymph nodes. 4. hepatic steatosis. 5. partially non obstsructing left nephrolithiasis Pulm: RLL penumonia, much improved Zosyn and Levaquin 750mg (05/28> ) as per ID Trops negative Tolerating room air Taper off steriods Pulm consulted and following BNP not elevated F.E.N. Fluids: PO adequate, IVF for hyponatremia Electrolytes: monitor Nutrition: regular diet Prohy: DVT: ambulatory patient, SCDs GI: Zantac Disposition: full code Visit type - Emergency Visit Emergency Visit: Yes ED Registration Date: 05/27/17 Care time: The patient presented to the Emergency Department on the above date and was hospitalized for further evaluation of their emergent condition. - New Patient This patient is new to me today: Yes Date on this admission: 05/30/17 - Critical Care Critical Care patient: No - Discharge Referral Referred to [facility] Med P.C.: Yes Physician Referral: Lelia Fuller MD ([facility])
[2017-05-30 11:22] LABS: BASO % 0.1 % (0-2.0); HEMATOCRIT 40.4 % (35.4-49); HEMOGLOBIN 13.8 GM/dL (11.7-16.9); LYMPH % 7.8 % (8-40); MCHC 34.2 g/dl (32.0-35.9); MEAN CELL VOLUME 87.6 fl (80-96); MEAN PLT VOLUME 9.4 fl (7.5-11.1); MONO % 11.9 % (3.8-10.2); NEUT % 80.2 % (42.8-82.8); PLATELET COUNT 162 K/MM3 (134-434); RBC 4.61 M/mm3 (4.00-5.60); RDW 13.9 % (11.9-15.9)
[2017-05-30 11:40] LABS: ANION GAP 12 (8-16); BILIRUBIN,TOTAL 0.4 mg/dL (0.2-1.0); BLOOD UREA NITROGEN 19 mg/dL (7-18); CALCIUM 8.4 mg/dL (8.5-10.1); CHLORIDE 107 mmol/L (98-107); CO2 22 mmol/L (21-32); GLUCOSE,RANDOM 162 mg/dL (74-106); POTASSIUM 3.9 mmol/L (3.5-5.1); SGOT/AST 35 U/L (15-37); SGPT/ALT 39 U/L (12-78); SODIUM 141 mmol/L (136-145); TOT PROT 6.6 g/dl (6.4-8.2)
[2017-05-30 11:41] LABS: ALK PHOS 61 U/L (45-117)
--- NOTE | 2017-05-30 13:21 | PN ---
Progress Note (short form) - Note Progress Note: Feels better. Less cough and congestion. No CP. No hemoptysis. Intake & Output 05/27/17 05/28/17 05/29/17 05/30/17 23:59 23:59 23:59 23:59 Intake Total 3300 2700 1600 Output Total 1700 700 625 Balance 1600 2000 975 Weight 250 lb 4.8 oz 251 lb 6 oz Last Vital Signs Temp Pulse Resp BP Pulse Ox 98.2 F 64 20 105/60 96 05/30/17 06:39 05/30/17 06:39 05/30/17 06:39 05/30/17 06:39 05/29/17 20:23 Active Medications Acetaminophen (Tylenol -) 650 mg PO Q6H PRN PRN Reason: FEVER Last Admin: 05/28/17 14:33 Dose: 650 mg Albuterol/Ipratropium (Duoneb -) 1 amp NEB RQID [facility] Last Admin: 05/30/17 12:15 Dose: 1 amp Benzocaine/Menthol (Cepacol Lozenge -) 1 each MM PRN PRN PRN Reason: SORE THROAT Last Admin: 05/29/17 21:48 Dose: 1 each Guaifenesin (Robitussin -) 10 ml PO Q6H PRN PRN Reason: COUGH Last Admin: 05/30/17 06:02 Dose: 10 ml Heparin Sodium (Porcine) (Heparin -) 5,000 unit SQ BID [facility] Last Admin: 05/30/17 10:13 Dose: 5,000 unit Sodium Chloride (Normal Saline -) 1,000 mls @ 100 mls/hr IV ASDIR [facility] Last Admin: 05/30/17 06:02 Dose: 100 mls/hr Levofloxacin (Levaquin 750 Mg Premixed Ivpb -) 750 mg in 150 mls @ 150 mls/hr IVPB DAILY [facility] Last Admin: 05/30/17 10:13 Dose: 150 mls/hr Piperacillin Sod/Tazobactam (Sod 3.375 gm/ Dextrose) 50 mls @ 100 mls/hr IVPB Q8H-IV [facility] PRN Reason: Protocol Last Admin: 05/30/17 10:14 Dose: 100 mls/hr Methylprednisolone Sodium Succinate (Solu-Medrol -) 40 mg IVPUSH Q6H-IV [facility] Last Admin: 05/30/17 10:13 Dose: 40 mg - Objective Vital Signs: Constitutional: Yes: NAD Eyes: Yes: WNL HENT: Yes: WNL Neck: Yes: WNL Cardiovascular: Yes: Regular Rate and Rhythm, S1, S2 Respiratory: Yes: few scattered rhonchi Gastrointestinal: Yes: Normal Bowel Sounds, Soft Extremities: Yes: WNL Edema: No Labs: Laboratory Results - last 24 hr 05/30/17 05/30/17 05/30/17 10:52 10:52 10:52 WBC 8.0 D RBC 4.61 Hgb 13.8 Hct 40.4 MCV 87.6 MCH 30.0 MCHC 34.2 RDW 13.9 Plt Count 162 D MPV 9.4 Neutrophils % 80.2 Lymphocytes % 7.8 L D Monocytes % 11.9 H Eosinophils % 0.0 Basophils % 0.1 Sodium 141 Potassium 3.9 Chloride 107 Carbon Dioxide 22 Anion Gap 12 BUN 19 H Creatinine 1.0 Creat Clearance w eGFR > 60 Random Glucose 162 H D Calcium 8.4 L Magnesium 2.4 D Total Bilirubin 0.4 AST 35 D ALT 39 Alkaline Phosphatase 61 Total Protein 6.6 Albumin 3.0 L Problem List - Problems (1) Hyponatremia Code(s): E87.1 - HYPO-OSMOLALITY AND HYPONATREMIA (2) Pneumonia Code(s): J18.9 - PNEUMONIA, UNSPECIFIED ORGANISM Qualifiers: Pneumonia type: due to unspecified organism Laterality: right Lung location: lower lobe of lung Qualified Code(s): J18.1 - Lobar pneumonia, unspecified organism (3) Thrombocytopenia Code(s): D69.6 - THROMBOCYTOPENIA, UNSPECIFIED Assessment/Plan MP RML,RUL PNEUMONIA HYPONATREMIA THROMBOCYTOPENIA PLAN IV ABX INHALED BRONCHODILATORS WEAN STEROIDS O2 F/U CHEST X-RAY AN OUTPATIENT TO DOCUMENT RESOLUTION MONITOR PLT CT DR MCGILL
--- NOTE | 2017-05-30 13:39 | PN ---
Progress Note, Physician History of Present Illness: patient better breathing better - Current Medication List Current Medications: Active Medications Acetaminophen (Tylenol -) 650 mg PO Q6H PRN PRN Reason: FEVER Last Admin: 05/28/17 14:33 Dose: 650 mg Albuterol/Ipratropium (Duoneb -) 1 amp NEB RQID [facility] Last Admin: 05/30/17 12:15 Dose: 1 amp Benzocaine/Menthol (Cepacol Lozenge -) 1 each MM PRN PRN PRN Reason: SORE THROAT Last Admin: 05/29/17 21:48 Dose: 1 each Guaifenesin (Robitussin -) 10 ml PO Q6H PRN PRN Reason: COUGH Last Admin: 05/30/17 06:02 Dose: 10 ml Heparin Sodium (Porcine) (Heparin -) 5,000 unit SQ BID [facility] Last Admin: 05/30/17 10:13 Dose: 5,000 unit Sodium Chloride (Normal Saline -) 1,000 mls @ 100 mls/hr IV ASDIR [facility] Last Admin: 05/30/17 06:02 Dose: 100 mls/hr Levofloxacin (Levaquin 750 Mg Premixed Ivpb -) 750 mg in 150 mls @ 150 mls/hr IVPB DAILY [facility] Last Admin: 05/30/17 10:13 Dose: 150 mls/hr Piperacillin Sod/Tazobactam (Sod 3.375 gm/ Dextrose) 50 mls @ 100 mls/hr IVPB Q8H-IV [facility] PRN Reason: Protocol Last Admin: 05/30/17 10:14 Dose: 100 mls/hr Methylprednisolone Sodium Succinate (Solu-Medrol -) 40 mg IVPUSH Q6H-IV [facility] Last Admin: 05/30/17 10:13 Dose: 40 mg - Objective Vital Signs: Vital Signs Temperature 98.2 F 05/30/17 06:39 Pulse Rate 64 05/30/17 06:39 Respiratory Rate 20 05/30/17 06:39 Blood Pressure 105/60 05/30/17 06:39 O2 Sat by Pulse Oximetry (%) 96 05/29/17 20:23 Constitutional: Yes: No Distress, Calm Cardiovascular: Yes: Regular Rate and Rhythm Respiratory: Yes: Regular, CTA Bilaterally Gastrointestinal: Yes: Normal Bowel Sounds, Soft Musculoskeletal: Yes: WNL Extremities: Yes: WNL Neurological: Yes: Alert, Oriented Psychiatric: Yes: Alert, Oriented Labs: CBC, BMP 05/30/17 10:52 05/30/17 10:52 INR, PTT INR 1.27 (0.82-1.09) H 05/27/17 17:30 Assessment/Plan Problem List - Problems (1) Hyponatremia Code(s): E87.1 - HYPO-OSMOLALITY AND HYPONATREMIA (2) Pneumonia Code(s): J18.9 - PNEUMONIA, UNSPECIFIED ORGANISM Qualifiers: Pneumonia type: due to unspecified organism Laterality: right Lung location: lower lobe of lung Qualified Code(s): J18.1 - Lobar pneumonia, unspecified organism (3) Thrombocytopenia Code(s): D69.6 - THROMBOCYTOPENIA, UNSPECIFIED plan continue abx will stop levaquin incentive inder as per pul cx result noted
[2017-05-30] MEDS ORDERED: PT OWN MED DRAWER 7, Y5N ONE (17:03)
[2017-05-30] MEDS: PANTOPRAZOLE 40 MG TABLET (FP) PO SCH (17:30)
[2017-05-31] MEDS: guaiFENesin 200 MG/10 ML 10 ML UNIT-DOSE CUPS PO PRN ×4 (00:25→19:43)
[2017-05-31] MEDS: methylPREDNISolone NA SUCC 40 MG/1 ML VIAL IVPUSH SCH ×2 (01:26→10:54)
[2017-05-31] MEDS ORDERED: DEXTROSE 5%-WATER - 50 ML IVPB ONE ×3 (01:26→16:36)
[2017-05-31] MEDS ORDERED: PIPERACILLIN/TAZOBACTAM 3.375 GM VIAL IVPB ONE ×3 (01:26→16:36)
[2017-05-31] MEDS: PIPERACILLIN/TAZOB 3.375 GM 3.375 GM in DEXTROSE 5%-WATER - 50 ML IVPB SCH ×3 (01:27→17:04)
[2017-05-31] MEDS: ALBUTEROL SO4 2.5/IPRATROPIUM 0.5 INH SOL 3 ML VIAL.NEB. NEB SCH ×4 (08:42→21:05)
[2017-05-31] MEDS: PANTOPRAZOLE 40 MG TABLET (FP) PO SCH (10:52)
[2017-05-31 10:58] LABS: BASO % 0.2 % (0-2.0); HEMATOCRIT 41.2 % (35.4-49); HEMOGLOBIN 14.3 GM/dL (11.7-16.9); LYMPH % 8.5 % (8-40); MCH 30.3 pg (25.7-33.7); MCHC 34.7 g/dl (32.0-35.9); MEAN CELL VOLUME 87.5 fl (80-96); MEAN PLT VOLUME 8.8 fl (7.5-11.1); MONO % 11.1 % (3.8-10.2); NEUT % 80.2 % (42.8-82.8); PLATELET COUNT 186 K/MM3 (134-434); RBC 4.71 M/mm3 (4.00-5.60); RDW 14.4 % (11.9-15.9); WHITE BLOOD COUNT 9.9 K/mm3 (4.0-10.0)
[2017-05-31 11:37] LABS: ALBUMIN 3.3 g/dl (3.4-5.0); ALK PHOS 69 U/L (45-117); ANION GAP 13 (8-16); BILIRUBIN,TOTAL 0.5 mg/dL (0.2-1.0); BLOOD UREA NITROGEN 19 mg/dL (7-18); CALCIUM 8.5 mg/dL (8.5-10.1); CHLORIDE 108 mmol/L (98-107); CO2 21 mmol/L (21-32); GLUCOSE,RANDOM 146 mg/dL (74-106); MAGNESIUM 2.5 mg/dL (1.8-2.4); POTASSIUM 4.1 mmol/L (3.5-5.1); SGOT/AST 39 U/L (15-37); SGPT/ALT 45 U/L (12-78); SODIUM 142 mmol/L (136-145); TOT PROT 7.1 g/dl (6.4-8.2)
--- NOTE | 2017-05-31 14:10 | PN ---
Progress Note, Physician History of Present Illness: doing much better no new issues breathing much better - Current Medication List Current Medications: Active Medications Acetaminophen (Tylenol -) 650 mg PO Q6H PRN PRN Reason: FEVER Last Admin: 05/28/17 14:33 Dose: 650 mg Albuterol/Ipratropium (Duoneb -) 1 amp NEB RQID [facility] Last Admin: 05/31/17 11:40 Dose: 1 amp Benzocaine/Menthol (Cepacol Lozenge -) 1 each MM PRN PRN PRN Reason: SORE THROAT Last Admin: 05/29/17 21:48 Dose: 1 each Guaifenesin (Robitussin -) 10 ml PO Q6H PRN PRN Reason: COUGH Last Admin: 05/31/17 13:44 Dose: 10 ml Piperacillin Sod/Tazobactam (Sod 3.375 gm/ Dextrose) 50 mls @ 100 mls/hr IVPB Q8H-IV [facility] PRN Reason: Protocol Last Admin: 05/31/17 10:57 Dose: 100 mls/hr Methylprednisolone Sodium Succinate (Solu-Medrol -) 40 mg IVPUSH Q8H-IV [facility] Last Admin: 05/31/17 10:54 Dose: 40 mg Pantoprazole Sodium (Protonix -) 40 mg PO DAILY [facility] Last Admin: 05/31/17 10:52 Dose: 40 mg - Objective Vital Signs: Vital Signs Temperature 98 F 05/31/17 12:51 Pulse Rate 94 H 05/31/17 12:51 Respiratory Rate 18 05/31/17 12:51 Blood Pressure 144/86 05/31/17 12:51 O2 Sat by Pulse Oximetry (%) 95 05/30/17 20:52 Constitutional: Yes: No Distress, Calm Cardiovascular: Yes: Regular Rate and Rhythm Respiratory: Yes: Regular, CTA Bilaterally Gastrointestinal: Yes: Normal Bowel Sounds, Soft Musculoskeletal: Yes: WNL Extremities: Yes: WNL Neurological: Yes: Alert, Oriented Psychiatric: Yes: Alert, Oriented Labs: CBC, BMP 05/31/17 10:40 05/31/17 10:40 INR, PTT INR 1.27 (0.82-1.09) H 05/27/17 17:30 Assessment/Plan Problem List - Problems (1) Hyponatremia Code(s): E87.1 - HYPO-OSMOLALITY AND HYPONATREMIA (2) Pneumonia Code(s): J18.9 - PNEUMONIA, UNSPECIFIED ORGANISM Qualifiers: Pneumonia type: due to unspecified organism Laterality: right Lung location: lower lobe of lung Qualified Code(s): J18.1 - Lobar pneumonia, unspecified organism (3) Thrombocytopenia Code(s): D69.6 - THROMBOCYTOPENIA, UNSPECIFIED plan continue abx will continue monitoring rest as per primary team patient improving will d/w the team about further plan awaiting for pul input
--- NOTE | 2017-05-31 14:58 | PN ---
Progress Note, Physician History of Present Illness: pulmonary alert,feeling better,sob improved,less cough - Current Medication List Current Medications: Active Medications Acetaminophen (Tylenol -) 650 mg PO Q6H PRN PRN Reason: FEVER Last Admin: 05/28/17 14:33 Dose: 650 mg Albuterol/Ipratropium (Duoneb -) 1 amp NEB RQID [facility] Last Admin: 05/31/17 11:40 Dose: 1 amp Benzocaine/Menthol (Cepacol Lozenge -) 1 each MM PRN PRN PRN Reason: SORE THROAT Last Admin: 05/29/17 21:48 Dose: 1 each Guaifenesin (Robitussin -) 10 ml PO Q6H PRN PRN Reason: COUGH Last Admin: 05/31/17 13:44 Dose: 10 ml Piperacillin Sod/Tazobactam (Sod 3.375 gm/ Dextrose) 50 mls @ 100 mls/hr IVPB Q8H-IV [facility] PRN Reason: Protocol Last Admin: 05/31/17 10:57 Dose: 100 mls/hr Methylprednisolone Sodium Succinate (Solu-Medrol -) 40 mg IVPUSH Q8H-IV [facility] Last Admin: 05/31/17 10:54 Dose: 40 mg Pantoprazole Sodium (Protonix -) 40 mg PO DAILY [facility] Last Admin: 05/31/17 10:52 Dose: 40 mg - Objective Vital Signs: Vital Signs Temperature 98 F 05/31/17 12:51 Pulse Rate 94 H 05/31/17 12:51 Respiratory Rate 18 05/31/17 12:51 Blood Pressure 144/86 05/31/17 12:51 O2 Sat by Pulse Oximetry (%) 95 05/30/17 20:52 Constitutional: Yes: Well Nourished, Calm Eyes: Yes: WNL HENT: Yes: WNL Neck: Yes: WNL Cardiovascular: Yes: Regular Rate and Rhythm, S1, S2 Respiratory: Yes: Diminished Gastrointestinal: Yes: Normal Bowel Sounds, Soft Extremities: Yes: WNL Edema: No Labs: CBC, BMP 05/31/17 10:40 05/31/17 10:40 INR, PTT INR 1.27 (0.82-1.09) H 05/27/17 17:30 Problem List - Problems (1) Hyponatremia Code(s): E87.1 - HYPO-OSMOLALITY AND HYPONATREMIA (2) Pneumonia Code(s): J18.9 - PNEUMONIA, UNSPECIFIED ORGANISM Qualifiers: Pneumonia type: due to unspecified organism Laterality: right Lung location: lower lobe of lung Qualified Code(s): J18.1 - Lobar pneumonia, unspecified organism (3) Thrombocytopenia Code(s): D69.6 - THROMBOCYTOPENIA, UNSPECIFIED Assessment/Plan MP RML,RUL PNEUMONIA HYPONATREMIA IMPROVED THROMBOCYTOPENIA IMPROVED PLAN ABX PER ID INHALED BRONCHODILATORS O2 CHEST X-RAY TODAY D/C STEROIDS NO OBJECTION TO DISCHARGE DR YOUNGER Problem List - Problems (1) Hyponatremia Code(s): E87.1 - HYPO-OSMOLALITY AND HYPONATREMIA (2) Pneumonia Code(s): J18.9 - PNEUMONIA, UNSPECIFIED ORGANISM Qualifiers: Pneumonia type: due to unspecified organism Laterality: right Lung location: lower lobe of lung Qualified Code(s): J18.1 - Lobar pneumonia, unspecified organism (3) Thrombocytopenia Code(s): D69.6 - THROMBOCYTOPENIA, UNSPECIFIED
[2017-05-31] MEDS ORDERED: PT OWN MED DRAWER 7, Y5N ONE (16:34)
--- NOTE | 2017-05-31 17:03 | PN ---
Physical Exam: SUBJECTIVE: Patient seen and examined. He is oob to chair, no acute complaints, denies sob. OBJECTIVE: Vital Signs Period Temp Pulse Resp BP Sys/Lombardi Pulse Ox Last 24 Hr 98 F-98.6 F 60-99 18-20 138-155/60-86 93-97 PE Neuro: alert, awake, cn 2-12intact Pulm: scattered rhonchi, r base course CV: s1 s2 rrr no mrg Abd: s nt nd + bs Ext: warm no le edema Laboratory Results - last 24 hr 05/31/17 05/31/17 10:40 10:40 WBC 9.9 RBC 4.71 Hgb 14.3 Hct 41.2 MCV 87.5 MCH 30.3 MCHC 34.7 RDW 14.4 Plt Count 186 MPV 8.8 Neutrophils % 80.2 Lymphocytes % 8.5 Monocytes % 11.1 H Eosinophils % 0.0 Basophils % 0.2 Sodium 142 Potassium 4.1 Chloride 108 H Carbon Dioxide 21 Anion Gap 13 BUN 19 H Creatinine 1.0 Creat Clearance w eGFR > 60 Random Glucose 146 H Calcium 8.5 Magnesium 2.5 H Total Bilirubin 0.5 D AST 39 H ALT 45 Alkaline Phosphatase 69 Total Protein 7.1 Albumin 3.3 L Active Medications Generic Name Dose Route Start Last Admin Trade Name Freq PRN Reason Stop Dose Admin Acetaminophen 650 mg 05/27/17 19:05 05/28/17 14:33 Tylenol - PO 650 mg Q6H PRN Administration FEVER Albuterol/Ipratropium 1 amp 05/27/17 20:00 05/31/17 16:02 Duoneb - NEB 1 amp RQID [facility] Administration Benzocaine/Menthol 1 each 05/29/17 20:04 05/29/17 21:48 Cepacol Lozenge - MM 1 each PRN PRN Administration SORE THROAT Guaifenesin 10 ml 05/27/17 21:56 05/31/17 13:44 Robitussin - PO 10 ml Q6H PRN Administration COUGH Piperacillin Sod/Tazobactam 50 mls @ 100 mls/hr 05/28/17 18:00 05/31/17 10:57 Sod 3.375 gm/ Dextrose IVPB 100 mls/hr Q8H-IV [facility] Administration Protocol Methylprednisolone Sodium Succinate 40 mg 06/01/17 10:00 Solu-Medrol - IVPUSH DAILY [facility] Pantoprazole Sodium 40 mg 05/30/17 17:00 05/31/17 10:52 Protonix - PO 40 mg DAILY [facility] Administration Imaging: CT chest: pneumonia with complete opacity of the right mid lobe and patchy right upper lobe infiltrates. 2. small layering right pleural effusion with subsegmental compressive atelectasis in the right lung base. 3. clusters of subcentimeter mediastinal lymph nodes. 4. hepatic steatosis. 5. partially non obstsructing left nephrolithiasis Assessment: 42 year old male with no significant past medical history admitted with worsening fever, chills, sob. Plan: 1. RLL/RML PNA - Zosyn per ID - PO abx tomorrow, will d.w ID - Taper steroids to daily 2. Thrombocytopenia - Resolved Dispo: - Home tomorrow Visit type - Emergency Visit Emergency Visit: Yes ED Registration Date: 05/27/17 Care time: The patient presented to the Emergency Department on the above date and was hospitalized for further evaluation of their emergent condition. - New Patient This patient is new to me today: Yes Date on this admission: 05/31/17 - Critical Care Critical Care patient: No
[2017-06-01] MEDS ORDERED: DEXTROSE 5%-WATER - 50 ML IVPB ONE ×2 (01:01→10:02)
[2017-06-01] MEDS ORDERED: PIPERACILLIN/TAZOBACTAM 3.375 GM VIAL IVPB ONE ×2 (01:01→10:02)
[2017-06-01] MEDS: PIPERACILLIN/TAZOB 3.375 GM 3.375 GM in DEXTROSE 5%-WATER - 50 ML IVPB SCH ×2 (01:16→10:05)
[2017-06-01] MEDS: ALBUTEROL SO4 2.5/IPRATROPIUM 0.5 INH SOL 3 ML VIAL.NEB. NEB SCH ×2 (07:15→11:23)
--- NOTE | 2017-06-01 08:28 | DS ---
Physical Exam: SUBJECTIVE: Patient seen and examined. No acute issues, walking around the room , eating. OBJECTIVE: Vital Signs Period Temp Pulse Resp BP Sys/Lombardi Pulse Ox Last 24 Hr 97.9 F-98.6 F 68-105 18-20 129-146/70-93 94-97 PE Neuro: alert, awake, cn 2-12intact Pulm: scattered rhonchi, r base course CV: s1 s2 rrr no mrg Abd: s nt nd + bs Ext: warm no le edema Laboratory Results - last 24 hr 05/31/17 05/31/17 10:40 10:40 WBC 9.9 RBC 4.71 Hgb 14.3 Hct 41.2 MCV 87.5 MCH 30.3 MCHC 34.7 RDW 14.4 Plt Count 186 MPV 8.8 Neutrophils % 80.2 Lymphocytes % 8.5 Monocytes % 11.1 H Eosinophils % 0.0 Basophils % 0.2 Sodium 142 Potassium 4.1 Chloride 108 H Carbon Dioxide 21 Anion Gap 13 BUN 19 H Creatinine 1.0 Creat Clearance w eGFR > 60 Random Glucose 146 H Calcium 8.5 Magnesium 2.5 H Total Bilirubin 0.5 D AST 39 H ALT 45 Alkaline Phosphatase 69 Total Protein 7.1 Albumin 3.3 L HOSPITAL COURSE: Date of Admission:05/27/17 Date of Discharge: 06/01/17 Minutes to complete discharge: 37 Discharge Summary Reason For Visit: PNEUMONIA INVOLVING RIGHT LUNG Current Active Problems Hyponatremia (Acute) Pneumonia (Acute) Thrombocytopenia (Acute) Hospital Course: Initial Hospital Course: Briefly, this 42 year old male with no significant past medical history presented to the ED with subjective high fevers and chills x1 week with a non productive cough, body aches, throat pain and runny nose. 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 Imaging: CT chest: pneumonia with complete opacity of the right mid lobe and patchy right upper lobe infiltrates. 2. small layering right pleural effusion with subsegmental compressive atelectasis in the right lung base. 3. clusters of subcentimeter mediastinal lymph nodes. 4. hepatic steatosis. 5. partially non obstsructing left nephrolithiasis Subsequent Hospital Course/Progress Note/DC Summary: Assessment: 42 year old male with no significant past medical history admitted with worsening fever, chills, sob. Plan: 1. RLL/RML PNA - Completed Zosyn/levaquin - Home with augmentin 875 BID x10 days - Home with prednisone taper 2. Thrombocytopenia - Resolved Dispo: - Home with above meds and pcp follow up -Pt aware and agrees to above plan Condition: Stable - Instructions Diet, Activity, Other Instructions: Please return to the ED for any new, persistent or worsening symptoms. Follow up with your PCP in 1 week Complete antibiotics and steroids as directed and until completed Referrals: Joel Pemberton MD [Staff Physician] - 3 Weeks (follow up cxr) Carly Guthrie [Primary Care Provider] - 1 Week (Follow up xray in 6 weeks to confirm resolution ) Dylon Epperson MD [Staff Physician] - Disposition: HOME - Home Medications Comprehensive Discharge Medication List: Ambulatory Orders Amoxicillin/Potassium Clav [Augmentin 875-125 Tablet] 1 each PO BID #20 tablet 06/01/17 Prednisone 10 mg PO DAILY #26 tablet 06/01/17 This patient is new to me today: No Emergency Visit: Yes ED Registration Date: 05/27/17 Care time: The patient presented to the Emergency Department on the above date and was hospitalized for further evaluation of their emergent condition. Critical Care patient: No - Discharge Referral Referred to [facility] Yes Physician Referral: Lelia Fuller MD ([facility])
[2017-06-01] MEDS ORDERED: methylPREDNISolone NA SUCC 40 MG/1 ML VIAL IVPUSH SCH (10:00)
[2017-06-01] MEDS ORDERED: PT OWN MED DRAWER 7, Y5N ONE (10:02)
[2017-06-01] MEDS: PANTOPRAZOLE 40 MG TABLET (FP) PO SCH (10:04)
[2017-06-01 11:10] VITALS: BP 144/86; PULSE 98; TEMP 98.2
== END 2017-06-01 13:09 | disposition home or self-care (01) | DRG 139 ==
LOC: JERFT 15:36 → JER 15:36 → JERBED 17:53 → J6S 22:52
PROVIDERS: ADMIT Internal Medicine; ATTEND Nurse Practitioner Acute Care
DX: J18.9 Pneumonia, unspecified organism (principal); J90 Pleural effusion, not elsewhere classified; D69.6 Thrombocytopenia, unspecified; N20.0 Calculus of kidney; E87.1 Hypo-osmolality and hyponatremia; K76.0 Fatty (change of) liver, not elsewhere classified; R09.02 Hypoxemia; E86.0 Dehydration; J98.11 Atelectasis
CPT/HCPCS: 36415; 71046-TC-FY; 71250-TC; 80053; 81003; 81015; 83605; 83735; 83880; 84484; 85025; 85610; 87040; 87070; 87077; 87086; 87205; 87804; 87899; 93005; 93010; 94640; 94761; 99283-25; J1644; J7030

== ENCOUNTER 2018-06-19 22:41 | Emergency (ER) | payer SELFPAY ==
[2018-06-19 22:47] VITALS: BP 152/100; PULSE 103; TEMP 98.7; BMI 29.9
--- NOTE | 2018-06-20 01:24 | PDOC ---
History of Present Illness - General Chief Complaint: Pain Stated Complaint: NOSE INFECTION Time Seen by Provider: 06/20/18 01:19 History Source: Patient - History of Present Illness Initial Comments: 06/20/18 01:20 43 year old male c/o left nostril redness and pain patient report increased redness and pain to the nostril. reports cutting the inside of the nostril while trimming hairs in the nose. denies fever/ chills Past History - Past Medical History Allergies/Adverse Reactions: Allergies Allergy/AdvReac Type Severity Reaction Status Date / Time No Known Allergies Allergy Verified 05/27/17 15:44 Home Medications: Ambulatory Orders Amoxicillin/Potassium Clav [Augmentin 875-125 Tablet] 1 each PO BID #20 tablet 06/01/17 Prednisone 10 mg PO DAILY #26 tablet 06/01/17 Cephalexin Monohydrate [Keflex -] 250 mg PO Q8H #21 capsule 06/20/18 Fluticasone Prop 0.05% Nasal [Flonase -] 1 - 2 spray NS BID #1 spray.pump Sulfamethoxazole/Trimethoprim [Bactrim Ds -] 1 tab PO BID #14 tablet 06/20/18 COPD: No - Suicide/Smoking/Psychosocial Hx Smoking Status: No Smoking History: Never smoked Number of Cigarettes Smoked Daily: 0 Hx Alcohol Use: Yes Drug/Substance Use Hx: No Substance Use Type: Alcohol Hx Substance Use Treatment: No Review of Systems - Review of Systems Able to Perform ROS?: Yes Is the patient limited Wallisian proficient: No Constitutional: No: Symptoms Reported, See HPI, Chills, Diaphoresis, Fever, Loss of Appetite, Malaise, Night Sweats, Weakness, Weight Stable, Unintentional Wgt. Loss, Unexplained wgt Loss, Other HEENTM: Yes: Nose Pain, Nose Congestion *Physical Exam - Vital Signs Last Vital Signs Temp Pulse Resp BP Pulse Ox 98.7 F 103 H 18 152/100 98 06/19/18 22:44 06/19/18 22:44 06/19/18 22:44 06/19/18 22:44 06/19/18 22:44 - Physical Exam General Appearance: Yes: Appropriately Dressed HEENT: positive: Nasal Congestion, Rhinorrhea, Other (erythema to nasal bridge b /l ) Cardiovascular: positive: Regular Rhythm, Regular Rate Extremity: positive: Erythema (to nose) Integumentary: positive: Normal Color, Dry, Warm Neurologic: positive: Fully Oriented, Alert Medical Decision Making - Medical Decision Making 06/20/18 01:24 A: cellulitis P: cephalexin bactrim flonase PCP follow up for wound check in 2 days discussed with patient. *DC/Admit/Observation/Transfer Diagnosis at time of Disposition: Cellulitis of nasal tip - Discharge Dispostion Disposition: HOME - Prescriptions Prescriptions: Cephalexin Monohydrate [Keflex -] 250 mg PO Q8H #21 capsule Fluticasone Prop 0.05% Nasal [Flonase -] 1 - 2 spray NS BID #1 spray.pump Sulfamethoxazole/Trimethoprim [Bactrim Ds -] 1 tab PO BID #14 tablet - Referrals Referrals: Hong Marcelo MD [Staff Physician] - Call tomorrow [facility] [Provider Group] - Call tomorrow - Patient Instructions Printed Discharge Instructions: Cellulitis Additional Instructions: you may use saline spray to both nares. take cephalexin and bactrim as prescribed. you may take tylenol and ibuprofen every 6 hours as needed pain follow up with your doctor as soon as possible. - Post Discharge Activity
[2018-06-20] MEDS ORDERED: CEPHALEXIN MONOHYDRATE 500 MG CAPSULE (UD) PO ONE (01:27)
[2018-06-20] MEDS ORDERED: SULFAMETHOXAZOLE/TRIMETHOPRIM 800MG/160MG D.S. TABLET PO ONE (01:27)
--- NOTE | 2018-06-20 01:29 | PDOC ---
*Physical Exam - Vital Signs Last Vital Signs Temp Pulse Resp BP Pulse Ox 98.7 F 103 H 18 152/100 98 06/19/18 22:44 06/19/18 22:44 06/19/18 22:44 06/19/18 22:44 06/19/18 22:44 Medical Decision Making - Medical Decision Making 06/20/18 01:29 Patient seen by the advanced practice provider under my direct supervision. Ancillary testing reviewed as necessary. I agree with plan as outlined by the advanced practice provider. *DC/Admit/Observation/Transfer Diagnosis at time of Disposition: Cellulitis of nasal tip - Prescriptions Prescriptions: Cephalexin Monohydrate [Keflex -] 250 mg PO Q8H #21 capsule Fluticasone Prop 0.05% Nasal [Flonase -] 1 - 2 spray NS BID #1 spray.pump Sulfamethoxazole/Trimethoprim [Bactrim Ds -] 1 tab PO BID #14 tablet - Referrals - Patient Instructions - Post Discharge Activity
[2018-06-20] MEDS ORDERED: IBUPROFEN 600 MG TABLET (FP) PO ONE (01:54)
[2018-06-20] MEDS ORDERED: SULFAMETHOXAZOLE/TRIMETHOPRIM 800MG/160MG D.S. TABLET ONE (02:02)
[2018-06-20] MEDS ORDERED: CEPHALEXIN MONOHYDRATE 500 MG CAPSULE (UD) ONE (02:02)
== END 2018-06-20 02:08 | disposition home or self-care (01) ==
LOC: JER 22:41
DX: J34.0 Abscess, furuncle and carbuncle of nose (principal)
CPT/HCPCS: 99281-25

== ENCOUNTER 2020-11-13 20:56 | Emergency (ER) | payer OTHER ==
[2020-11-13 21:01] VITALS: BP 137/97; PULSE 77; TEMP 98.2; BMI 30.6
[2020-11-13] MEDS ORDERED: CLINDAMYCIN HCL 300 MG CAPSULE PO ONE (22:21)
[2020-11-13] MEDS ORDERED: CLINDAMYCIN HCL 150 MG CAPSULE (FP) ONE (22:24)
== END 2020-11-13 22:30 | disposition home or self-care (01) ==
LOC: FER 20:56
DX: L03.113 Cellulitis of right upper limb (principal)
CPT/HCPCS: 99283-25

== ENCOUNTER 2023-01-21 15:29 | Emergency (ER) | payer OTHER ==
[2023-01-21] MEDS ORDERED: ACETAMINOPHEN 500 MG TABLET (FP) PO ONE (16:10)
[2023-01-21 16:17] VITALS: RESP 18; BMI 31.1
[2023-01-21] MEDS ORDERED: LIDOCAINE HCL 2% JELLY 10 ML CARTRIDGE ONE (16:19)
[2023-01-21] MEDS ORDERED: ACETAMINOPHEN 500 MG TABLET (FP) ONE (16:26)
[2023-01-21] MEDS ORDERED: AMOX TR/POT CLAV 875MG/125MG TABLETS (FP) PO ONE (17:39)
[2023-01-21] MEDS ORDERED: AZITHROMYCIN 250 MG TABLET PO ONE (17:39)
[2023-01-21] MEDS ORDERED: ALBUTEROL SO4 0.083% IH SOL 2.5 MG/3 ML VIAL.NEB. NEB ONE ×2 (17:39→17:43)
[2023-01-21] MEDS ORDERED: guaiFENesin 200 MG/10 ML 10 ML UNIT-DOSE CUPS PO ONE (17:39)
[2023-01-21] MEDS ORDERED: guaiFENesin/D-METHORPHAN HB 10 ML UNIT-DOSE CUPS ONE (17:43)
[2023-01-21] MEDS ORDERED: AZITHROMYCIN 500 MG TABLET ONE (17:50)
[2023-01-21] MEDS ORDERED: AMOX TR/POT CLAV 875MG/125MG TABLETS (FP) ONE (17:50)
[2023-01-21 18:02] VITALS: BP 118/83; PULSE 95; TEMP 98.8
== END 2023-01-21 18:18 | disposition home or self-care (01) ==
LOC: FER 15:29
PROC: 3E0F7GC Introduction of Other Therapeutic Substance into Respiratory Tract, Via Natural or Artificial Opening (ICD-10-PCS; principal; 2023-01-21)
DX: R05.9 Cough, unspecified (principal); R09.81 Nasal congestion; R50.9 Fever, unspecified; J40 Bronchitis, not specified as acute or chronic; Z20.822 Contact with and (suspected) exposure to COVID-19
CPT/HCPCS: 0241U-QW; 71046-TC-FY; 99284-25

== ENCOUNTER 2023-04-08 16:09 | Emergency (ER) | payer OTHER ==
[2023-04-08 16:23] VITALS: BP 123/64; PULSE 84; RESP 18; TEMP 98.2; BMI 29.9
== END 2023-04-08 18:10 | disposition home or self-care (01) ==
LOC: FER 16:09
DX: M79.662 Pain in left lower leg (principal); M79.89 Other specified soft tissue disorders
CPT/HCPCS: 93971-TC; 99284-25